=== PATIENT | male | born 1970 | race Caucasian/White ===

== ENCOUNTER 2024-01-12 12:23 | Outpatient (AMB) | payer OTHER, SELFPAY ==
--- NOTE | 2024-01-12 12:30 | MHC.OFFWIV ---
Intake Vital Signs 01/12/24 12:31 Height 6 ft 1 in Weight 234 lb BMI 30.9 BP 150/80 H Blood Pressure Location Lt brachial Position Sitting Pulse 68 Pulse Source Pulse Oximeter Temp 97.3 F Temp Source Temporal Artery Scan Pulse Oximetry (%) 97 Oxygen Delivery Method Room Air Intake Visit Reasons: [employer] Congestion, Cough (masked) Intake Note: pt is here today for congestion cough started 1 week ago Patient Tobacco Use Status: Never used Tobacco Allergies No Known Allergies [No Known Allergies*] Allergy (Verified 01/12/24 13:02) Medication List - Last Reconciled 01/12/24 by TAYLOR Diane aspirin 81 mg PO DAILY losartan 25 mg PO DAILY metoprolol succinate ER 12.5 mg PO DAILY rosuvastatin 40 mg PO BEDTIME Do you need a note to return to daycare/school/sports/work: Yes HPI HPI Comments History of Present Illness Details Patient is a 53-year-old male in today for a sick visit. Patient states that for the past week he has developed symptoms of sore throat, cough, headache, chest congestion, sinus tenderness. Patient has been using dkxd-qdk-awrypti Mucinex with little effect. States he has also had chills. The past 2 days he states that it feels like the congestion has moved down into his chest, he is currently expect rating green and yellow mucus. Denies chest pain, shortness a breath, dizziness, nausea, vomiting, diarrhea. Patient also states that he forgot to take his blood pressure medications this morning. [facility] Social History Patient Tobacco Use Status: Never used Tobacco Review of Systems Const All systems reviewed & are unremarkable except as noted in HPI and below Physical Exam Vital Signs: Last Vital Signs Temp 97.3 F 01/12/24 12:31 Pulse 68 01/12/24 12:31 BP 150/80 H 01/12/24 12:31 Pulse Ox 97 01/12/24 12:31 Oxygen Delivery Method Room Air 01/12/24 12:31 BMI result Body Mass Index 30.9 Patient did not take blood pressure medications today Patient instructed to take medications and measure BP at home Const Other: Appearance: Alert.? Oriented X3.? No acute distress.? Head: Normocephalic, atraumatic, no step-offs or deformities Eyes: Pupils equal, round and reactive to light.? ENT: Pharynx erythema. TM intact no erythema but effusion bilaterally. Neck: Normal inspection.? Neck supple.?Full ROM CVS: Normal heart rate and rhythm.? Pulses normal.? Respiratory: No respiratory distress.? Breath sounds diminished upper lobes. Abdomen: Soft and nontender.? Neuro: Oriented X 3.? No motor deficit.? No sensory deficit. CN 2-12 intact Assessment & Plan Assessment & Plan (1) Sinusitis: Comment: Will obtain chest x-ray, CMP, CBC, upper respiratory swab. Will give patient prednisone, azithromycin, and benzonatate to be taken as directed. Code(s): J32.9 - Chronic sinusitis, unspecified Qualifiers: Sinusitis location: unspecified location Chronicity: unspecified Qualified Code(s): J32.9 - Chronic sinusitis, unspecified Plan: Take your medications as prescribed. If you were prescribed antibiotics today, it is important that you take your medication to their entirety, do not skip any doses, do not finish them early. Follow-up with your primary care provider this week. Return to the emergency department with new or worsening symptoms. Such as fevers, chills, chest pain, shortness of breath, nausea, vomiting, dizziness, headache, vision changes, lethargy In case of emergency call 911 Plan Follow-up with PCP Orders: Orders SARS-CoV2/FLU/RSV Today J06.9 - Acute upper respiratory infection, unspecified Comprehensive Met. Panel Today Z91.89 - Other specified personal risk factors, not elsewhere classified XR chest 2V Today J18.9 - Pneumonia, unspecified organism Complete Blood Count Auto Diff Today J18.9 - Pneumonia, unspecified organism Medications: New amoxicillin-pot clavulanate 875-125 mg 1 tab PO Q12H 14 tabs 0RF prednisone 20 mg PO BID 10 tabs 0RF benzonatate 200 mg PO BID PRN 30 caps 0RF cough Coding Level of Care Code Est Pt Level 3 (18748) Diagnoses Sinusitis, unspecified chronicity, unspecified location J32.9 Sinusitis location: unspecified location Chronicity: unspecified
[2024-01-12 12:31] VITALS: BP 150/80; PULSE 68; TEMP 36.3; O2SAT 97; BMI 30.9
== END 2024-01-12 13:38 | disposition home or self-care (01) ==
PROVIDERS: PCP Nurse Practitioner Family; Visit Provider Nurse Practitioner Primary Care
DX: J32.9 Chronic sinusitis, unspecified (principal)
CPT/HCPCS: 99214

== ENCOUNTER 2024-01-12 12:59 | Outpatient (REF) | payer OTHER, SELFPAY ==
--- NOTE | ~2024-01-12 | XR_ITS ---
EXAMINATION: XR CHEST CLINICAL INFORMATION: Pneumonia. COMPARISON: None available. TECHNIQUE: 2 views of the chest were obtained. FINDINGS: Unremarkable chest exam. XR/XR chest 2V IMPRESSION: Unremarkable chest exam.
[2024-01-12 16:13] LABS: MANUAL DIFF FLAG NO
[2024-01-12 16:17] LABS: Basophils Percent Auto 0.4 % (0-2); Eosinophils Absolute Auto 0.2 X10*3/uL (0.0-0.4); Eosinophils Percent Auto 2.7 % (0-4); Hematocrit 44.5 % (42.0-52.0); Hemoglobin 15.1 g/dl (14.0-18.0); Imm Gran Abs Auto 0.03 X10*3/uL (0.00-0.03); Imm Gran Pct Auto 0.4 % (0.0-0.4); Lymphocytes Absolute Auto 1.8 X10*3/uL (1.2-4.9); Lymphocytes Percent Auto 21.4 % (20-40); Mean Corpuscular HGB Conc 33.9 g/dl (31.0-36.0); Mean Corpuscular Hemoglobin 30.9 pg (27.0-33.0); Mean Platelet Volume 9.9 fL (9.4-12.4); Monocytes Percent Auto 11.1 % (2-11); Neutrophils Absolute Auto 5.5 x10*3/uL (2.0-8.3); Platelet Count 287 X10*3/uL (160-400); Red Blood Count 4.89 X10*6/uL (4.60-5.80); White Blood Count 8.6 X10*3/uL (4.8-10.8)
[2024-01-12 16:46] LABS: Alanine Aminotransferase 18 U/L (0-40); Albumin Level 4.1 g/dL (3.5-5.0); Alkaline Phosphatase 91 U/L (39-117); Anion Gap 13 (12-20); Aspartate Amino Transferase 19 U/L (5-37); Bilirubin Total 0.4 mg/dL (0.0-1.0); Blood Urea Nitrogen 14 mg/dL (9-16); Calcium 9.1 mg/dL (8.4-10.2); Carbon Dioxide 27 mmol/L (22-29); Chloride 106 mmol/L (96-108); Estimated Glomerular Filt Rate > 60; Glucose Random 94 mg/dL (60-115); Potassium 3.9 mmol/L (3.3-5.1); Sodium 142 mmol/L (135-145); Total Protein 7.3 g/dL (6.5-8.0)
[2024-01-12 17:57] LABS: Influenza A PCR NEGATIVE (Negative); Influenza B PCR NEGATIVE (Negative); Resp Syncy Virus RNA Qual PCR NEGATIVE (Negative); SARS COV2 PCR INHOUSE NEGATIVE (Negative)
== END 2024-01-12 13:00 | disposition home or self-care (01) ==
LOC: HO.HMGCX 12:59
PROVIDERS: Visit Provider Nurse Practitioner Primary Care
DX: Z11.52 Encounter for screening for COVID-19 (principal); J18.9 Pneumonia, unspecified organism; J06.9 Acute upper respiratory infection, unspecified; Z91.89 Other specified personal risk factors, not elsewhere classified
CPT/HCPCS: 0241U; 36415; 71046; 80053; 85025

== ENCOUNTER 2025-01-31 09:48 | Outpatient (AMB) | payer OTHER, SELFPAY ==
--- NOTE | 2025-01-31 09:54 | AM.OFFWIN_ITS ---
Intake Vital Signs 01/31/25 09:55 Weight 244 lb BP 132/80 Blood Pressure Location Rt brachial Position Sitting Pulse 86 Pulse Source Pulse Oximeter Temp 98.9 F Temp Source Oral Pulse Oximetry (%) 96 Oxygen Delivery Method Room Air Intake Visit Reasons: EP-cold symptoms, ringing ears Intake Note: Patient here for headaches, ringing of ears, cough and fevers that started over the weekend. Patient Tobacco Use Status: Never used Tobacco Allergies No Known Allergies [No Known Allergies*] Allergy (Verified 01/31/25 09:56) Do you need a note to return to daycare/school/sports/work: Yes HPI HPI Comments History of Present Illness Details This is a 54-year-old male with a past medical history of hypertension hyperlipidemia presenting for evaluation of ringing in his ears bilaterally over the past 2 weeks and cold symptoms which include sore throat, ear pain, rhinorrhea and headache since yesterday. Patient has been taking Danna-Hanson cold and flu without relief of his symptoms. Patient denies having any fevers, chills, chest pain, cough, shortness for breath. [facility] Social History Patient Tobacco Use Status: Never used Tobacco Review of Systems Const All systems reviewed & are unremarkable except as noted in HPI and below Denies chills, Denies fatigue, Denies fever(s), Denies headache(s) and Denies weakness Eyes Reports no additional complaints ENT Reports no additional complaints, Reports as per HPI, Reports otalgia, Denies headache(s), Denies mouth pain, Reports tinnitus, Denies sinus pain, Reports sore throat, Denies throat swelling and Reports other Card Reports no additional complaints and Denies dyspnea Resp Reports no additional complaints, Denies chest congestion, Denies cough and Denies dyspnea GI Reports no additional complaints Reports no additional complaints Musc Reports no additional complaints Skin/Breast Reports system reviewed and no additional complaints, except as documented Neuro Reports no additional complaints, Denies headache(s) and Denies weakness Psych Reports no additional complaints Endo Denies fatigue Chris/Lymph Reports no additional complaints Aller/Immun Reports no additional complaints and Denies throat swelling Physical Exam Vital Signs: Last Vital Signs Temp 98.9 F 01/31/25 09:55 Pulse 86 01/31/25 09:55 BP 132/80 01/31/25 09:55 Pulse Ox 96 01/31/25 09:55 Oxygen Delivery Method Room Air 01/31/25 09:55 Const Other: Patient warm to touch, mild diaphoresis forehead General: cooperative, healthy appearing, comfortable, no acute distress, well developed, alert and awake; No lethargic Nutritional Appearance: well nourished Orientation/consciousness: patient oriented x3 and No lethargic Limitations: no limitations HEENT Head: Yes normal to inspection and Yes normocephalic Ears: hearing grossly normal bilaterally, external ears normal, TM's abnormal bilaterally (TMs bulging bilaterally, mild erythema right TM), EAC's normal and no periauricular adenopathy General nose exam: Normal external nose present Face and sinus: Yes normal facial exam, Yes sinuses nontender and Yes face symmetric Mouth: Normal oral and palatal mucosa present and oropharynx normal Throat: Yes posterior oropharynx normal (There is no erythema, edema or exudates of the posterior oropharynx) Eyes General: appearance normal, both eyes and all related structures Alignment and Position: alignment normal Eyelids: Yes eyelids normal Conjunctivae: conjunctivae normal Corneas: corneas normal Pupils: Equal, round and reactive pupils present EOM: EOMs intact bilaterally Resp Effort & Inspection: normal respiratory effort Auscultation: clear to auscultation bilaterally Cardio Rate: regular rate Rhythm: regular rhythm Skin General skin exam: no rashes or lesions noted Neuro General: patient oriented x3 Cranial nerves: Yes Equal, round and reactive pupils present Psych Appearance: grossly normal Mental Status: mental status grossly normal Insight: Good insight present (Psych) Judgement: Good judgement present (Psych) Assessment & Plan Assessment & Plan (1) Otitis media of right ear: Comment: SARS panel ordered and pending; multifactorial etiologies of tinnitus are discussed with the patient. Patient will be discharged home with amoxicillin. Code(s): H66.91 - Otitis media, unspecified, right ear Qualifiers: Otitis media type: unspecified Qualified Code(s): H66.91 - Otitis media, unspecified, right ear Plan: Amoxicillin 500 mg t.i.d., quantity 21. Orders: Orders SARS-CoV2/FLU/RSV Today J06.9 - Acute upper respiratory infection, unspecified Medications: New amoxicillin 500 mg PO TID 21 caps 0RF Coding Level of Care Code Est Pt Level 3 (28485) Diagnoses Right otitis media, unspecified otitis media type H66.91 Otitis media type: unspecified Time Spent (min) 20
[2025-01-31 09:55] VITALS: BP 132/80; PULSE 86; TEMP 37.2; O2SAT 96
--- OUTSIDE RECORDS SUMMARY | 2025-01-31 11:14 | XMS_ITS | Data Portability ---
Author Organization [facility] [address] Address [address] [place] [address] Care Team Providers Care Produce Team Lead Name Role Phone BUCK NOLAND NP Primary Care Provider Assessment No assessment recorded. Plan of Treatment Reminders Order Date Submit Date Provider Last Modified By Organization Details Last Modified Time Details Appointments None recorded. Lab None recorded. Referral None recorded. Procedures None recorded. Surgeries None recorded. Imaging None recorded. Medication Orders prednisone 20 mg tablet 2022 023 [id number] [address] [place], [address], 3 12:28:33 fexofenadin e-pseudoeph edrine ER 180 mg-240 mg tablet,ext. release 24 hr 2022 023 [id number], [address] [place], [address], 3 12:28:33 Patient TargetsNo targets recorded. Patient Instructions Encounter Date Encounter Id Patient Instructions Last Modified By Organization Details Last Modified Time 11/02/2022 [id number] sore throat: car e instructions Not available 11/02/2022 12:28:31 Sinusitis is an infection of the lining of the sinus cavities in your head. Sinusitis often follows a cold. It causes pain and pressure in your head and face. In most cases, sinusitis gets better on its own in 1 to 2 weeks. But some mild symptoms may last for several weeks. Sometimes antibiotics are needed. if you are having problems. It's also a good idea to know your test results and keep a list of the medicines you take. How can you care for yourself at home? Take an vrkg-its-djfefkc pain medicine. Avoid Ibuprofen, Aleve and Aspirin if . If the doctor prescribed antibiotics, take them as directed. Do not stop taking them just because you feel better. You need to take the full course of antibiotics. Be careful when taking wquq-lap-keayonp cold or influenza (flu) medicines and Tylenol at the same time. Many of these medicines have acetaminophen, which is Tylenol. Read the labels to make sure that you are not taking more than the recommended dose. Too much acetaminophen (Tylenol) can be harmful. Breathe warm, moist air from a steamy shower, a hot bath, or a sink filled with hot water. Avoid cold, dry air. Using a humidifier in your home may help. Follow the directions for cleaning the machine. Use saline (saltwater) nasal washes. This can help keep your nasal passages open and wash out mucus and bacteria. You can buy saline nose drops at a grocery store or drugstore. Or you can make your own at home by adding 1 teaspoon (5 millilitres) of salt and 1 teaspoon (5 millilitres) of baking soda to 2 cups (500 mL) of distilled water. If you make your own, fill a bulb syringe with the solution, insert the tip into your nostril, and squeeze gently. Blow your nose. Put a hot, wet towel or a warm gel pack on your face 3 or 4 times a day for 5 to 10 minutes each time. Try a decongestant nasal spray like oxymetazoline (Drixoral). Do not use it for more than 3 days in a row. Using it for more than 3 days can make your congestion worse. Not available 11/02/2022 12:28:08 Reason for Referral None Reported. Problems No Known Problems Procedures Surgical History Date Name Laterality Status Provider Name and Address Organization Details Recorded Time 10/19/19 20 repair of musculotendinous cuff of shoulder completed CALEB THOMPSON - [facility] 11/02/2022 11:59:24 Imaging Results None recorded. Procedure Notes None recorded. Medical Equipment None Reported. Allergies No known drug allergies Medications Name Sig Start Date Stop Date Status Note LastModified by Organization Details LastModified Time prednisone 20 mg tablet Take 2 tablets every day by oral route in the morning for 4 days. 2022 active Not Available Not Available Not Avai lable acetaminophe n 300 mg-codeine 30 mg tablet TAKE 1 TABLET BY MOUTH EVERY 4 HOURS NEEDED FOR PAIN 11/02 completed Not Available Not Available Not Available fexofenadine -pseudoephed rine ER 180 mg-240 mg tablet,ext.r elease 24 hr Take 1 tablet every day by oral route in the evening for 10 days. 2022 active Not Available Not Available Not Avai lable Vitals Date Recorded Body height Body mass index (BMI) Body weight Pain severity - 0-10 verbal numeric rating [Score] - Reported Body temperature Respiratory rate Heart rate Oxygen saturation Oxygen saturation in Arterial blood by Pulse oximetry Systolic blood pressure Diastolic blood pressure Provider Name and Address Organization Details Last Updated DateTime 3 185.42 cm 31.3 kg/m2 496645. 39 g 1 97.4 [degF] 18 /min 86 /min 97 % 97 % 138 mm[Hg] 88 mm[Hg] CALEB ESPINOZA [employer] [facility] 3 12:00:56 Social History Question Answer Notes LastModified by [employer] Details LastModified Time Tobacco Smoking Status Never Smoker CALEB dye Confer [facility] 11/02/2022 11:59:04 What Is Your Level Of Alcohol Consumption? Occasional Information not available 11/02/2022 How Many Times Per Week Do You Consume Alcohol? 1-2 Times Per Week Information not available 11/02/2022 Do You Use Any Illicit Or Recreational Drugs? No Information not available 11/02/2022 Have You Recently Traveled Abroad? No Information not available 11/02/2022 Do You Or Have You Ever Used Any Other Forms Of Tobacco Or Nicotine? No Information not available 11/02/2022 Sex: Unknown Functional Status None recorded. Mental Status None recorded. Family History Relationship Description Onset Age of this Age Resolved Age Notes LastModified by Organization Details LastModified Time Father No current problems or disability Not available 11/02 11:58:48 Mother No current problems or disability Not available 11/02 11:58:48 Medical History No medical history recorded. Immunizations Vaccine Type Date Status Note Provider Nam e and Address Organization Details Recorded Time Influenza, MDCK, quadrivalent, PF 11/12/2021 completed CALEB DEPINTO null, [place] - [facility] 11/02/2022 11:58:22 COVID-19, mRNA, LNP-S, PF, 30 mcg/0.3 mL dose 02/22/2021 completed CALEB DEPINTO null, [place] - [facility] 11/02/2022 11:58:22 COVID-19, mRNA, LNP-S, PF, 30 mcg/0.3 mL dose 11/12/2021 completed CALEB DEPINTO null, [place] - [facility] 11/02/2022 11:58:22 COVID-19, mRNA, LNP-S, PF, 30 mcg/0.3 mL dose 02/01/2021 completed CALEB DEPINTO null, [place] - [facility] 11/02/2022 11:58:22 Past Encounters Encounter ID Performer Location Encounter Start Date Encounter Closed Date Diagnosis/Indication Diagnosis SNOMED-CT Code Diagnosis ICD10 Code Diagnosis Note [id number] [address] [address] 12/11/2020 19:04:57 12/11/2020 19:48:55 [id number] [address] [address] 03/28/2018 17:16:40 03/28/2018 17:47:24 [id number] [address] [address] 05/15/2020 11:25:54 05/15/2020 12:39:20 [id number] [address] [address] 12/13/2021 14:09:10 12/13/2021 15:20:18 [id number] [address] [address] 05/18/2016 12:20:03 05/18/2016 13:08:20 [id number] [address] [address] 08/13/2021 13:14:32 08/13/2021 14:22:31 [id number] [address] [facility] [address] [place] [address] 05/10/2022 09:11:07 05/10/2022 10:08:04 [id number] Rakesh Luz NP [address] [place] [address] 11/02/2022 11:50:15 11/02/2022 12:37:29 Acute sinusitis [id number] J01.90 Health Concerns Section Related Observation LastModified by Organization Detai ls LastModified Time None Recorded Concern Status LastModified by Organization Details LastModified Time None Recorded Advance Directives Directive None Recorded Payers Encounter Date Sequence Insurance Name Policy Number Policy Presley Covered Member ID Presley Member ID Guarantor Name 12/11/2020 1 [place] [id number] Jl Guan [id number] Jl Guan 11/02/2022 1 [place] [id number] Jl Guan [id number] Jl Guan Notes Date Note Type Note Provider Name and Address Organization Details Recorded Time 11/02/2022 text/html CongestionReport ed bypatient.Notes:nasal congestion with post nasal drip x 3 days. denies nay fever or fever with chills. no SOB or respiratory distress. Rakesh Luz NP [address] [place], [address], [place] - [facility] 11/02/2022 12:29:28
== END 2025-01-31 11:08 | disposition home or self-care (01) ==
PROVIDERS: PCP Nurse Practitioner Family; Visit Provider Physician Assistant
DX: H66.91 Otitis media, unspecified, right ear (principal)

== ENCOUNTER 2025-01-31 09:48 | Outpatient (REF) | payer OTHER, SELFPAY ==
[2025-01-31 13:49] LABS: Influenza A PCR NEGATIVE (Negative); Influenza B PCR NEGATIVE (Negative); Resp Syncy Virus RNA Qual PCR NEGATIVE (Negative); SARS COV2 PCR INHOUSE POSITIVE (Negative)
== END 2025-01-31 09:49 | disposition home or self-care (01) ==
LOC: HO.LNP 09:48
PROVIDERS: PCP Nurse Practitioner Family; Visit Provider Physician Assistant
DX: J06.9 Acute upper respiratory infection, unspecified (principal)
CPT/HCPCS: 0241U